=== PATIENT | male | born 1995 | race Caucasian/White ===

== ENCOUNTER 2023-07-04 09:00 | Emergency (ER) | payer SELFPAY ==
[~2023-07-04] VITALS: Ht 165.1 cm; Wt 60.0 kg
[2023-07-04 09:10] VITALS: BP 111/75; PULSE 79; RESP 15; TEMP 98.5; O2SAT 100
== END 2023-07-04 10:01 ==
LOC: ER 09:14
DX: S61.411A Laceration without foreign body of right hand, initial encounter (principal); X58.XXXA Exposure to other specified factors, initial encounter; Y93.89 Activity, other specified; Y92.89 Other specified places as the place of occurrence of the external cause; Y99.8 Other external cause status
CPT/HCPCS: 99283